=== PATIENT | male | born 1990 | race Caucasian/White ===

== ENCOUNTER 2021-05-05 03:04 | Emergency (ER) | payer SELFPAY ==
[~2021-05-05] VITALS: Ht 25.4 cm; Wt 93.6 kg
[2021-05-05 03:10] VITALS: TEMP 97.9
[2021-05-05] MEDS ORDERED: AMOXICILLIN 50500 MG PO (04:17)
[2021-05-05 04:23] VITALS: BP 117/77; PULSE 68
== END 2021-05-05 04:26 | disposition home or self-care (01) ==
LOC: COL.ER 03:04
DX: B34.9 Viral infection, unspecified (principal); K04.7 Periapical abscess without sinus; Z20.822 Contact with and (suspected) exposure to COVID-19

== ENCOUNTER 2023-05-29 20:53 | Emergency (ER) | payer BC ==
[~2023-05-29] VITALS: Ht 172.7 cm; Wt 90.9 kg
[~2023-05-29 20:53] MED LIST: AMOXICILLIN 50500 MG PO
[2023-05-29 20:58] VITALS: BP 125/68; TEMP 97.7
[2023-05-29] MEDS ORDERED: AMOXICILLIN 8751 TAB PO (21:17)
[2023-05-29 21:37] VITALS: PULSE 83
== END 2023-05-29 21:37 | disposition home or self-care (01) ==
LOC: COL.ER 20:53
DX: S61.051A Open bite of right thumb without damage to nail, initial encounter (principal); S50.811A Abrasion of right forearm, initial encounter; Z23 Encounter for immunization; W55.01XA Bitten by cat, initial encounter